=== PATIENT | female | born 1995 | race African-American/Black ===

== ENCOUNTER 2018-02-13 16:10 | Day surgery (SDC) | payer OTHER ==
[2018-02-13 16:48] VITALS: BMI 25.7
[2018-02-13 17:35] LABS: Bilirubin Negative (Negative); Blood, Urine Negative (Negative); Clarity CLEAR (Clear); Glucose, Urine (Dipstick) Negative (Negative); Leukocyte Negative (Negative); Nitrite Negative (Negative); Protein, Urine (Dipstick) Negative (Neg-Trace); Specific Gravity, Urine 1.022 (1.002-1.036); pH, Urine 7.5 (5.0-9.0)
[2018-02-13 17:38] LABS: Bacteria/HPF None Seen HPF (None Seen); Hyaline Casts/LPF 4-6 HYALINE CAST LPF (0-3 Hyaline); Pathc Cast-AUWi Flag 1.16 (0-2.49); RBC/HPF 0-3 HPF (0-3); WBC/HPF 0-3 HPF (0-3)
[2018-02-13 17:44] LABS: Renal Epithelial None Seen HPF (0-3); Transitional Epithelial NONE SEEN HPF (0-3)
--- NOTE | 2018-02-13 18:02 | PDOC.LDHP ---
Labor and Delivery H&P Chief complaint: abdominal pain HPI: 22 y/o at 20w4d, patient of Dr. Brar, presents with intermittent abdominal pain for the last few days. The pain comes a few times per day and lasts 1-2 minutes. Has not tried anything to make the pain better. Has had some dysuria and frequency but denies VB, LOF, or decreased FM. Drinks about half a cup of tea per day, no other liquids. ROS neg for HEENT, CV, pulm, GI, , neuro, psych, skin, musculoskeletal, or constitutional symptoms other than mentioned above. OB History Details: 1 prior term LTCS for [facility] 8 months ago Current complications: other (Short interval ) Past Medical History: None Current medications: pre-dona vitamins Previous surgical history: low tranverse CS Allergies/Adverse Reactions: Allergies Allergy/AdvReac Type Severity Reaction Status Date / Time penicillin G Allergy Verified 04/15/17 10:40 Social history: none - Physical Exam Vital signs reviewed and normal: yes General: NAD, resting Lungs: nonlabored breathing Abdomen: gravid Extremeties: no edema FHT: category 1 (140s) - Vaginal Exam cm dilated: 0 Effacement: 0% Station: -3 - Assessment 22 y/o at 20w4d with musculoskeletal discomforts of . UA wnl. status reassuring. - Plan -: D/c home with precautions. Comfort measures discussed.
== END 2018-02-13 18:09 | disposition home or self-care (01) ==
LOC: L&D/OP 16:10
PROVIDERS: ATTEND Family Medicine
DX: O99.89 Other specified diseases and conditions complicating pregnancy, childbirth and the puerperium (principal); R10.9 Unspecified abdominal pain; Z88.0 Allergy status to penicillin; Z3A.20 20 weeks gestation of pregnancy; Z79.899 Other long term (current) drug therapy; Z98.891 History of uterine scar from previous surgery
CPT/HCPCS: 51701; 81001; 87086; 99283; A4353

== ENCOUNTER 2018-06-20 09:22 | Day surgery (SDC) | payer OTHER ==
[2018-06-20 09:57] VITALS: BP 114/70; TEMP 97.9; BMI 28.8
--- NOTE | 2018-06-20 12:19 | PRG ---
DATE OF SERVICE: 06/20/2018 PRIMARY OFFICE SERVICES CLERK: Dr. Gage Brar. CHIEF COMPLAINT: Abdominal and back pain. HISTORY OF PRESENT ILLNESS: The patient is a 22-year-old G2, P1 female with an intrauterine pregnanc y at 38 weeks and 5 days who is scheduled for repeat on 06/24/2018. The patient reports th at she has been having lower abdominal and back pain that she describes as being sharp and is exacerb ated by movement activity. She reports that she woke up this morning. Measurable and came for evalu ation. The patient denies leakage of fluid or vaginal bleeding. She denies fever. She has had a re cent cold. Denies chest pain or shortness of breath. She does report heartburn. She denies rash. Denies diarrhea or constipation. Denies urinary urgency or muscle weakness. The patient does admit she does not believe she is having contraction pains like labor pains, but she does hurt and is seeki ng help. The patient reports that she was scheduled to visit with Dr. Brar on Sunday, but missed h er appointment and is attempting to reschedule for this week. PAST MEDICAL HISTORY: Negative. PAST SURGICAL HISTORY: One prior for malpresentation. ALLERGIES: PENICILLIN. MEDICATIONS: vitamins. SOCIAL HISTORY: Denies drug, alcohol or tobacco use. OB LABS: Blood type O positive, antibody screen is negative, RPR is nonreactive. HIV is nonreactive . Hepatitis B surface antigen is negative. She is rubella immune. Urine drug screen was positive f or marijuana. REVIEW OF SYSTEMS: Per HPI. PHYSICAL EXAMINATION: VITAL SIGNS: Blood pressure 120/73, heart rate of 94, respiratory rate 18, satting 100% on room air, temperature 97.9. GENERAL: She appears to be in no acute distress. She is alert and oriented, cooperative and pleasan t to interact with. HEENT: Normocephalic, atraumatic. LUNGS: Clear to auscultation bilaterally. HEART: Regular rate and rhythm. ABDOMEN: Soft. She does have tenderness to palpation with lateral deviation of the uterus and lower pelvic suprapubic tenderness or lateral groin inguinal tenderness. Patient also has SI joint tender ness to palpation. EXTREMITIES: Nontender, nonedematous. GENITOURINARY: Per nursing staff cervix is closed, thick and high. heart tracing performed for an NST for abdominal pain in . Baseline is noted to be in the 120s with moderate long-term variability, positive accelerations, no decelerations. The tocomet er shows possibly some irritability, but no clear contractions seen. ASSESSMENT AND PLAN: The patient is a 22-year-old G2, P1 female with an intrauterine at 38 weeks and 5 days with musculoskeletal pain, no evidence of labor. Fetus is reactive NST in category 1 tracing. The patient is scheduled for repeat on 06/24/2018. During her evaluation, the patient was asked if she had a conversation about the possibility of a trial of labor after , the patient reported she says was told it was too risky. The patient is being provided today gener al information of trial of labor after and it was shared to her by myself given the indicati on for her previous as now presentation that she would be a candidate to consider a trial o f labor after . The patient was counseled to have further discussion with her primary provid er if that is the desire of hers.
== END 2018-06-20 10:42 | disposition home or self-care (01) ==
LOC: L&D/OP 09:22
PROVIDERS: ATTEND Family Medicine
DX: O99.89 Other specified diseases and conditions complicating pregnancy, childbirth and the puerperium (principal); R10.30 Lower abdominal pain, unspecified; M54.9 Dorsalgia, unspecified; Z3A.38 38 weeks gestation of pregnancy; Z88.0 Allergy status to penicillin
CPT/HCPCS: 99283